=== PATIENT | female | born 2000 | race African-American/Black ===

== ENCOUNTER 2022-06-23 13:42 | Outpatient (CLI) | payer OTHER, SELFPAY ==
--- NOTE | 2022-06-23 14:00 | CRLHL7_ITS ---
For Patients: As a result of the Century Cures Act, medical imaging exams and procedure reports are released immediately into your electronic medical record. You may view this report before your referring provider. If you have questions, please contact your health care provider. INDICATION: pelvic pain; check IUD placement COMPARISON: none TECHNIQUE: 2D morales scale and color Doppler images were acquired of the pelvis using a transabdominal and transvaginal approach. FINDINGS: Sonographic images demonstrate a normal size and smooth outer contour of the uterus. Uterus measures 5.9 cm in length by 3.2 cm in AP diameter by 3.7 cm in transverse dimension. The myometrium has a normal uniform echotexture. Intrauterine device is in good position within the endometrial canal. The right ovary measures 4.0 x 2.5 x 2.9 cm in size and the left ovary measures 3.2 x 1.3 x 1.8 cm. The ovaries demonstrate normal arterial and venous blood flow on color Doppler analysis. There are no suspicious fluid collections within the cul-de-sac. IMPRESSION: Normal position of the IUD. Normal exam. Dictated by Napoleon Soares MD @ 06/23/2022 2:33:50 PM (Electronically Signed)
== END 2022-06-23 13:43 | disposition home or self-care (01) ==
PROVIDERS: PCP Family Medicine; Visit Provider Registered Nurse
DX: R10.2 Pelvic and perineal pain (principal)
CPT/HCPCS: 76830; 76856